=== PATIENT | female | born 1970 ===

== ENCOUNTER 2022-02-16 21:16 | Emergency (ER) | payer OTHER, SELFPAY ==
[2022-02-16 21:22] VITALS: BP 152/98; PULSE 94; RESP 17; TEMP 36.3; O2SAT 98
--- NOTE | 2022-02-16 21:44 | ED.GENADULT ---
HPI - General Adult General Chief complaint: Extremity Problem,Nontraumatic Stated complaint: RLE pain Time Seen by Provider: 02/16/22 21:34 History of Present Illness HPI narrative: 51-year-old female presents emergency room secondary pain down her right leg. She has been going on for several months. She is already been seen by a specialist. She has had some cortisone injections. Been taking [id number] pain medication not getting relief. She can go radiculopathy down the right leg. They someone has mentioned to her that she might need to have surgery for this. She is not actually seeing a back surgeon at this point. Denies any bowel or bladder issues. Whenever she tries to stand the pain gets even more intense. Related Data Allergies Allergy/AdvReac Type Severity Reaction Status Date / Time No Known Allergies Allergy Mild Verified 02/16/22 21:24 Review of Systems Review of Systems: CONSTITUTIONAL: Denies fever, chills, or sweats. EYES: Denies visual changes, redness, or discharge. ENT: Denies rhinorrhea, congestion, sore throat, or otalgia. CARDIOVASCULAR: Denies chest pain, palpitations, or edema. RESPIRATORY: Denies cough or dyspnea. GASTROINTESTINAL: Denies abdominal pain, nausea, vomiting, or diarrhea. GENITOURINARY: Denies dysuria or hematuria. SKIN: Denies rash or itching. MUSCULOSKELETAL: Some pain in the right lower back radiating all the way down the right leg on the lateral and posterior aspect. NEUROLOGIC: Denies headache, numbness, or weakness. PSYCHIATRIC: Denies anxiety or depression. PMFSH Surgical History Surgical History No pertinent past surgical history Social History Social History Living arrangements: with family Exam Narrative: APPEARANCE: Well appearing, no pain or distress, well-nourished. Head normocephalic and atraumatic. EYES: PERRLA/EOMI, conjunctivae very clear. NOSE: Normal with no drainage EARS:TMS clear Girish Kirby, with good light reflex. THROAT: Pharynx clear, no exudate. NECK: Supple. No adenopathy, no masses. RESPIRATORY: Airway patent, respirations nonlabored. Clear to auscultation bilaterally, no rales, rhonchi, wheezing. CARDIOVASCULAR: Regular rate and rhythm without murmurs, rubs, or gallops. ABDOMINAL: Soft, nontender, nondistended, no hepatosplenomegaly Musculoskeletal: Moves all extremities. Strength/ROM intact, No edema, No calf tenderness. Mild tenderness to palpation of the right lower lumbar region. Positive straight leg raising on the right. NEURO: Alert. Cranial nerves II through XII intact. Normal gait. Good coordination. Nonfocal examination. SKIN:: Warm, dry. Normal Color PSYCHIATRIC: Normal affect/mood, normal interaction Course Vital Signs Vital signs: Vital Signs Temperature 97.4 F L 02/16/22 21: Pulse Rate 94 02/16/22 21: Respiratory Rate 17 02/16/22 21: Blood Pressure 152/98 H 02/16/22 21: Pulse Oximetry 98 02/16/22 21:22 Oxygen Delivery Room Air 02/16/22 21:22 Temperature 97.4 F L 02/16/22 21: Pulse Rate 94 02/16/22 21: Respiratory Rate 17 02/16/22 21:22 Blood Pressure 152/98 H 02/16/22 21:22 Pulse Oximetry 98 02/16/22 21:22 Oxygen Delivery Room Air 02/16/22 21:22 Medical Decision Making MDM Narrative Medical decision making narrative: Patient has a right lumbar radiculopathy consistent with a bulging herniated disc. She had an MRI performed. She really needs to get into see someone who could possibly do a surgical intervention return if she needs 1. We will continue on some nonsteroidal anti-inflammatory pain medication. Also give her a few [place]'s told to be very cautious with these and generally try to take once before she goes to bed at night so she can get some sleep. Vital Signs Vital Signs: Vital Signs Temperature 97.4 F L 02/16/22 21: Pulse Rate 94 02/16/22
[2022-02-16] MEDS: HYDROcodone/acetaminophen (*CRX) 5-325 MG TABLET 1 TAB PO (21:50)
[2022-02-16] MEDS: KETOROLAC (*BKC) 60 MG/2 ML VIAL IM (21:50)
[2022-02-16] MEDS: predniSONE 20 MG TABLET 40 MG PO (21:50)
== END 2022-02-16 22:21 | disposition home or self-care (01) ==
PROVIDERS: Emergency Provider Emergency Medicine
DX: M54.16 Radiculopathy, lumbar region (principal)
CPT/HCPCS: 96372; 99283; A9270; J1885; J7512

== ENCOUNTER 2024-01-22 12:21 | Emergency (ER) | payer OTHER, SELFPAY ==
[2024-01-22 12:41] VITALS: BP 141/88; PULSE 87; RESP 18; TEMP 37.1; O2SAT 100
--- NOTE | 2024-01-22 12:57 | PC.NURSE ---
Pt's orthostatic BP measurements at these times were the followin (supine) - BP 131/92 and HR 76 1259 (sitting) - BP 137/93 and HR 77 1301 (standing) - BP 134/98 and HR 98 No complaints of dizziness throughout orthostatic measurements
--- NOTE | 2024-01-22 13:16 | PC.NURSE ---
Pt told gate technician during orthostatic blood pressures that she took a double dose of amlodipine yesterday and today.
--- NOTE | 2024-01-22 13:24 | ECG_ITS ---
SEE SCANNED COPY FOR CONFIRMED REPORT MTDD
[2024-01-22 14:05] LABS: Basophils Percent Auto 0.4 % (0.2-1.2); Eosinophils Absolute Auto 0.3 K/mm3 (0-0.3); Eosinophils Percent Auto 3.1 % (0-4.4); Hematocrit 43.9 % (37.0-47.0); Hemoglobin 14.3 g/dL (12.0-15.0); Immature Granulocyte Absolute 0.02 K/mm3 (0.00-0.031); Immature Granulocyte Percent A 0.2 % (0-0.5); Lymphocytes Absolute Auto 3.21 K/mm3 (0.9-3.2); Lymphocytes Percent Auto 39.5 % (18.3-44.2); Mean Corpuscular HGB Conc 32.6 g/dl (32-36); Mean Corpuscular Hemoglobin 30.2 pg (26-34); Mean Corpuscular Volume 92.6 fl (80-100); Mean Platelet Volume 12.1 fl (7.4-10.4); Monocytes Absolute Auto 0.3 K/mm3 (0.1-0.6); Monocytes Percent Auto 4.2 % (2.6-8.5); Neutrophils Absolute Auto 4.3 K/mm3 (1.3-6.7); Neutrophils Percent Auto 52.6 % (45.5-73.1); Platelet Count Result 220 k/mm3 (150-375); Red Blood Count 4.74 M/mm3 (4.2-5.4); White Blood Count 8.1 K/mm3 (4.5-10.0)
[2024-01-22 14:12] LABS: INR 0.9; Partial Thromboplastin Time 29.1 Seconds (22.3-36.8); Prothrombin Time 12.7 Seconds (11.1-14.7)
[2024-01-22 14:13] LABS: Alanine Aminotransferase 17 U/L (6-35); Albumin Level 4.6 g/dL (3.5-5.1); Alkaline Phosphatase 74 U/L (38-126); Anion Gap 7 mmol/L (4-12); Aspartate Amino Transferase 28 U/L (14-36); Blood Urea Nitrogen 10 mg/dL (7-17); Carbon Dioxide 25 mmol/L (22-30); Chloride 109 mmol/L (98-107); Estimated CRCL calculation 104 ml/min; Estimated Glomerular Filt Rate > 60; Glucose 99 mg/dL (65-110); Lipase 36 U/L (23-300); Potassium 3.6 mmol/L (3.4-5.0); Sodium 141 mmol/L (137-145)
[2024-01-22 14:24] LABS: Troponin I < 0.012 ng/mL (0.000-0.034)
[2024-01-22 14:34] VITALS: BP 133/64; PULSE 69; RESP 15; O2SAT 100
--- NOTE | 2024-01-22 15:18 | ED.DIZZY ---
HPI - Dizziness General Chief Complaint: Dizziness Stated Complaint: Dizzy and lightheaded Time Seen by Provider: 01/22/24 13:10 Source: patient Mode of arrival: ambulatory Limitations: no limitations History of Present Illness HPI Narrative: 53-year-old with a history of hypertension here with the complaints of dizziness since yesterday. Patient states that while she was at work well lightheaded for few minutes and again happened this morning. She denies any headache, chest pain or abdominal pain. She denies any blood in the stool upon arrival to the ER she states she is feeling better. Patient states that she is usually takes Norvasc 5 mg daily however she took 2 tablets yesterday. MD elicited complaint: dizziness and lightheadedness Severity: moderate Description: lightheadedness Context: change in medication Exacerbating factors: nothing Relieving factors: nothing Associated symptoms: denies other symptoms Related Data Allergies Allergy/AdvReac Type Severity Reaction Status Date / Time No Known Allergies Allergy Mild Verified 02/16/22 21:24 Review of Systems Review of Systems: All systems reviewed & are unremarkable except as noted in HPI and below Constitutional: Constitutional: Reports no additional constitutional complaints Eyes: Eyes: Reports no additional eye complaints ENT: Reports system reviewed and no additional complaints, except as documented Cardiovascular: Cardiovascular: Reports no additional cardiovascular complaints Respiratory: Respiratory: Reports no additional respiratory complaints Musculoskeletal: Musculoskeletal: Reports no additional musculoskeletal complaints Neurologic: Reports system reviewed and no additional complaints, except as documented PMFSH Surgical History Surgical History No pertinent past surgical history Social History Social History Living arrangements: with family Exam Narrative: GENERAL: Well-appearing, well-nourished, and in no acute distress. HEAD: Normocephalic, atraumatic. EYES: PERRLA and EOMI. ENT: Nares clear, no rhinorrhea or epistaxis. Mucous membranes moist. NECK: Supple. CHEST: Clear to auscultation. No respiratory distress. HEART: Regular rate and rhythm. No murmur heard. Normal peripheral pulses. ABDOMEN: Soft, nontender, nondistended, normal active bowel sounds. EXTREMITIES: Normal range of motion. No edema. SKIN: Warm, dry, no rash. NEURO: No focal deficits. Alert and oriented x3. PSYCH: Normal mood and affect. Course Course Emergency Course: Discussed all the lab work and EKG findings with the patient. She states she is feeling much better. Advised to take Norvasc 5 mg rather than 2 tablets., follow-up with her primary doctor. She does feel comfortable going home. Vital Signs Vital signs: Vital Signs Temperature 37.1 C 01/22/24 12:41 Pulse Rate 87 01/22/24 12:41 Respiratory Rate 18 01/22/24 12:41 Blood Pressure 141/88 H 01/22/24 12:41 Pulse Oximetry 100 01/22/24 12:41 Temperature 37.1 C 01/22/24 12:41 Pulse Rate 69 01/22/24 14:34 Respiratory Rate 15 01/22/24 14:34 Blood Pressure 133/64 01/22/24 14:34 Pulse Oximetry 100 01/22/24 14:34 MDM - Dizziness Lab Data 01/22/24 13:55 01/22/24 13:55 Labs: Lab Results 01/22/24 Range/Units 13:55 WBC 8.1 (4.5-10.0) K/mm3 RBC 4.74 (4.2-5.4) M/mm3 Hgb 14.3 (12.0-15.0) g/dL Hct 43.9 (37.0-47.0) % MCV 92.6 (80-100) fl MCH 30.2 (26-34) pg MCHC 32.6 (32-36) g/dl RDW 14.0 (11.5-14.5) % Plt Count 220 (150-375) k/mm3 MPV 12.1 H (7.4-10.4) fl Immature Gran % (Auto) 0.2 (0-0.5) % Neut % (Auto) 52.6 (45.5-73.1) % Lymph % (Auto) 39.5 (18.3-44.2) % [place] % (Auto) 4.2 (2.6-8.5) % Eos % (Auto) 3.1 (0-4.4) % Baso % (Auto) 0.4 (0.2-1.2) % Lymph # (Auto) 3.21 H (0.
[2024-01-22 16:25] VITALS: BP 145/86; PULSE 82; RESP 18; O2SAT 98
== END 2024-01-22 16:25 | disposition home or self-care (01) ==
PROVIDERS: Emergency Provider Family Medicine; PCP Physician Assistant
DX: R42 Dizziness and giddiness (principal); R94.31 Abnormal electrocardiogram [ECG] [EKG]
CPT/HCPCS: 36415; 80053; 83690; 84484; 85025; 85610; 85730; 93005; 99284

== ENCOUNTER 2025-06-03 15:10 | Emergency (ER) | payer OTHER, SELFPAY ==
[2025-06-03] VITALS (12 sets, daily range): BP systolic 118–154; BP diastolic 73–89; PULSE 54–81; RESP 13–19; TEMP 36.6; O2SAT 99–100
--- NOTE | ~2025-06-03 | CT_ITS ---
EXAMINATION: CTA brain carotid, 06/03/2025 17:05 CDT HISTORY: PEREZ, L facial paresthesia COMPARISON: No comparisons available. TECHNIQUE: CTA scan with 3D Reconstructions of the brain and neck was performed with contrast Isovue 300, 92cc injected IV. One or more of the following dose reduction techniques were used: automated exposure control, adjustment of the mA and/or kV according to patient size, use of iterative reconstruction technique. Unless otherwise stated, incidental findings do not require dedicated follow up imaging FINDINGS: CTA brain: Visualized brain parenchyma and orbits appear unremarkable. Basilar artery unremarkable. Right posterior cerebral artery unremarkable. The right posterior cerebral artery is fed predominantly by [place]. Left posterior cerebral artery unremarkable. The left posterior cerebral artery is fed predominantly by the [place] Right petrous and cavernous ICA segments unremarkable. Right M1, M2 segments and their branches unremarkable. Right A1 and A2 segments unremarkable Left petrous and cavernous ICA segments unremarkable. Left M1, M2 segments and their branches unremarkable. Left A1 and A2 segments unremarkable. CTA NECK: No sclerotic or lytic lesions. No significant sinusitis. The visualized parotid and submandibular glands are unremarkable. Soft tissues are unremarkable. Bilateral thyroid nodules the largest right lobe 1.5 x 1 cm, outpatient ultrasound recommended. The lung apices appear unremarkable. The cervical segments of the vertebral arteries are unremarkable. Right CCA unremarkable. Right ICA unremarkable Left CCA unremarkable. Left ICA unremarkable IMPRESSION: 1. No critical stenosis, occlusion or aneurysm identified. Reviewed, dictated and finalized at location P.
--- NOTE | ~2025-06-03 | XR_ITS ---
EXAMINATION: XR chest 1V, 06/03/2025 15:36 CDT HISTORY: cva w/u COMPARISON: No comparisons available. Technique: Single view. Findings: The lungs are clear, no effusion. No pneumothorax. Heart is normal size. Mediastinal and hilar contours are within normal limits. Bony thorax no acute abnormality. Impression: No acute cardiopulmonary abnormality. Reviewed, dictated and finalized at location P. Impression: No acute cardiopulmonary abnormality.
--- NOTE | ~2025-06-03 | CT_ITS ---
EXAMINATION: CT brain wo rigo, 06/03/2025 15:30 CDT HISTORY: posterior PEREZ, L facial tingling x3d COMPARISON: No comparisons available. Technique: Axial images obtained of the brain without contrast. One or more of the following dose reduction techniques were used: automated exposure control, adjustment of the mA and/or kV according to patient size, use of iterative reconstruction technique. Findings: No acute infarct or parenchymal hemorrhage. No abnormal mass or mass effect. No midline shift. No extra-axial fluid collections. No hydrocephalus. Mastoid air cells unremarkable. Sinuses and orbits unremarkable. No acute fracture. No significant facial or scalp soft tissue swelling evident. No radiopaque foreign body is seen. Impression: 1.No acute intracranial abnormality. Reviewed, dictated and finalized at location P. Impression: 1.No acute intracranial abnormality.
--- NOTE | 2025-06-03 15:29 | ECG_ITS ---
Test Date: 2025-06-03 17:42:09 Measurements Intervals [place] Rate: 52 P: 30 KS: 192 QRS: 15 QRSD: 95 T: 30 QT: 453 QTc: 422 Interpretive Statements SINUS BRADYCARDIA BORDERLINE ECG No previous ECG available for comparison Electronically Signed On 06-04-2025 08:35:25 CDT by Bayron Silveira D.O.
[2025-06-03 16:01] LABS: Hematocrit 41.0 % (37.0-47.0); Hemoglobin 13.3 g/dL (12.0-15.0); Immature Granulocyte Percent A 0.2 % (0-0.5); Lymphocytes Absolute Auto 3.11 K/mm3 (0.9-3.2); Mean Corpuscular HGB Conc 32.4 g/dl (32-36); Mean Corpuscular Hemoglobin 29.9 pg (26-34); Mean Corpuscular Volume 92.1 fl (80-100); Nucleated Red Blood Cells Absolute Auto 0.000 K/mm3 (0.0-0.012); Nucleated Red Blood Cells Perc 0.0 % (0.0-0.2); Platelet Count Result 186 k/mm3 (150-375); Red Blood Count 4.45 M/mm3 (4.2-5.4); White Blood Count 8.3 K/mm3 (4.5-10.0)
[2025-06-03] MEDS: ACETAMINOPHEN 500 MG TABLET 1000 MG PO (16:03)
[2025-06-03] MEDS: METOCLOPRAMIDE HCL INJ 10 MG/2 ML VIAL IV PUSH (16:04)
[2025-06-03] MEDS: SODIUM CHLORIDE 0.9% IV 1,000 ML 999 ML IV CONT (16:05)
--- OUTSIDE RECORDS SUMMARY | 2025-06-03 16:05 | XMS_ITS | Clinical Summary ---
Author Organization [facility] Address [address] [place] [address] Care Team Providers Care Store Stock Help Name Role Phone Unavailable Primary Care Provider Unavailabl e Source Comments [facility],non-owned Affiliates and Associated Physician Practices is amultiple site organization consisting of ambulatory clinics and hospital sitesin [place], [place], [place] and [place]. This disclosure is being madepursuant to the Care Everywhere program and may not contain all information available regarding this patient. Last updated 18.[facility] Allergies No known active allergies Medications * Be aware that medications may not be up to date on this document. Alwaysverify current medications with the patient. ASPIRIN PO Active levonorgestrel (MIRENA) 20 MCG/24HR IUD 1 device by Intrauterine route as directed Active Social History Tobacco Use Types Packs/Day Years Used Date Smoking Tobacco: Never Smokeless Tobacco: Never Tobacco Cessation:Counseling Given: Yes Comments No Sex and Gender Information Value Date Recorded Sex Assigned at Not on file Legal Sex Female 5:23 PM CDT Gender Identity Not on file Sexual Orientation Not on file Last Filed Vital Signs Vital Sign Reading Time Taken Comments Blood Pressure 135/88 05/26/2018 6:08 PM CDT Pulse 118 05/26/2018 6:08 PM CDT Temperature 38.7 C (101.7 F) 05/26/2018 6:08 PM CDT Respiratory Rate 18 05/26/2018 6:08 PM CDT Oxygen Saturation 97% 05/26/2018 6:08 PM CDT Inhaled Oxygen Concentration - - Weight 99.8 kg (220 lb) 05/26/2018 6:08 PM CDT Height 162.6 cm (5' 4) 05/26/2018 6:08 PM CDT Body Mass Index 37.76 05/26/2018 6:08 PM CDT Plan of Treatment Health Maintenance Due Date Last Done Comments COLOGUARD (AGES 45-75) - COL ON CA SCREENING 1968 COLON MONITORING 1968 COLONOSCOPY - COLON CA SCREENING 1968 CT COLONOGRAPHY - COLON CA SCREENING 1968 Colorectal Cancer Screening 1968 FIT - COLON CA SCREENING 1968 FLEX SIG - COLON CA SCREENING 1968 LIPID TESTING 1968 MAMMOGRAM 1968 HIV SCREENING 1983 HEPATITIS C SCREENING 05/21/1986 DTAP/TDAP/TD VACCINES (1 - Tdap) 1987 HEPATITIS B VACCINE (1 of 3 - 19+ 3-dose series) 1987 PNEUMOCOCCAL VACCINE 50+ (1 of 1 - PCV) 2018 ZOSTER VACCINE (1 of 2) 2018 SCREENING FOR DIABETES 05/26/2018 DEPRESSION SCREENING 08/31/2024 COVID-19 VACCINE (1 - 2023-2 5 season) 2025 INFLUENZA VACCINE (#1) 2025 HIB VACCINE Aged Out No longer eligi ble based on patient's age to complete this topic HPV VACCINE Aged Out No longer eligi ble based on patient's age to complete this topic MENINGOCOCCAL (Group B) VACC INE SHARED DECISION-MAKING Aged Out No longer eligibl e based on patient's age to complete this topic MENINGOCOCCAL GROUPS A/C/Y/W VACCINE Aged Out No longer eligible b ased on patient's age to complete this topic Insurance [facility]
--- OUTSIDE RECORDS SUMMARY | 2025-06-03 16:05 | XMS_ITS | Clinical Summary ---
Author Organization [facility] Care Team Providers Care Supervisor Metal Furniture Assembly Name Role Phone Unavailable Primary Care Provider Unavailabl e Social History Tobacco Use Types Packs/Day Years Used Date Smoking Tobacco: Never Assessed Comments Unknown Sex and Gender Information Value Date Recorded Sex Assigned at Not on file Legal Sex Female 10:32 AM CDT Gender Identity Not on file Sexual Orientation Not on file Plan of Treatment Health Maintenance Due Date Last Done Comments Hepatitis C Virus (HCV) Screening 1968 Hepatitis B Immunization (1 of 3 - 19+ 3-dose series) 1987 Pap Smear 1989 Cervical Cancer Screening (CCS) 1998 HPV/Cotest 1998 Cologuard 2013 Colonoscopy 2013 Colorectal Cancer Screening 2013 Immunochemical Fecal Occult Blood 2013 Pneumococcal Immunization (5 0+ years) (1 of 1 - PCV) 2018 Zoster Immunization (1 of 2) 2018 Influenza Immunization (#1) 2025 06/14/2013 SARS-COV-2 Immunization ( - season) 2025 Respiratory Syncytial Virus (RSV) Immunization (Adult) (1 - 1-dose 75+ series) 2043 DTaP/Tdap/Td Immunization Discontinued 08/31/2012 TdaP Immunization Completed 08/31/2012 Human Papillomavirus (HPV) Immunization Aged Out No longer eligible b ased on patient's age to complete this topic Meningococcal Immunization (ACWY) Aged Out No longer eligible based on patient's age to complete this topic Rotavirus Immunization Aged Out No lo nger eligible based on patient's age to complete this topic
--- OUTSIDE RECORDS SUMMARY | 2025-06-03 16:05 | XMS_ITS | Clinical Summary ---
Author Organization [facility] Address [address] [place] [address] Phone Care Team Providers Care Vat Operator Name Role Phone Unavailable Primary Care Provider Unavailabl e Allergies No known active allergies Medications naproxen (NAPROSYN) 500 mg tablet Take 1 Tablet (500 mg) by mouth 2 times daily with meals for five days, then decrease to only as needed after that 20 Tablet 01/05/2025 2:09 PM CDT 01/05/2025 Active cyclobenzaprine (FLEXERIL) 10 mg tablet Take 1 Tablet (10 mg) by mouth 3 times daily as needed for Spasm. 10 Tablet 01/05/2025 2:09 PM CDT 01/05/2025 Active Encounters Date Type Department Care Team Description 05/16/2025 External Device Data [facility] Provider, Abstract 05/09/2025 External Device Data [facility] Provider, Abstract 05/09/2025 External Device Data [facility] Provider, Abstract 05/02/2025 External Device Data [facility] Provider, Abstract 04/19/2025 External Device Data [facility] Provider, Abstract 04/05/2025 External Device Data [facility] Provider, Abstract 04/04/2025 External Device Data [facility] Provider, Abstract 04/04/2025 External Device Data [facility] Provider, Abstract 03/15/2025 External Device Data [facility] Provider, Abstract 03/15/2025 External Device Data [facility] Provider, Abstract from Last 3 Months Social History Tobacco Use Types Packs/Day Years Used Date Smoking Tobacco: Every Day Cigarettes Tobacco Cessation:Ready to Q uit: Not Asked; Counseling Given: Not Answered Alcohol Use Standard Drinks/Week Comments Not Currently 0 (1 standard drink = 0.6 oz pur e alcohol) Feeling Safe Answer Date Recorded Are you in a relationship wi th someone who hurts you emotionally and/or physically? No 01/05/2025 Comments No Sex and Gender Information Value Date Recorded Sex Assigned at Not on file Legal Sex Female 8:54 AM CDT Gender Identity Not on file Sexual Orientation Not on file Last Filed Vital Signs Vital Sign Reading Time Taken Comments Blood Pressure 155/99 01/05/2025 12:30 PM CDT Pulse 59 01/05/2025 12:30 PM CDT Temperature 36.2 C (97.2 F) 01/05/2025 9:00 AM CDT Respiratory Rate 20 01/05/2025 12:30 PM CDT Oxygen Saturation 95% 01/05/2025 12:30 PM CDT Inhaled Oxygen Concentration - - Weight 99.8 kg (220 lb) 01/05/2025 9:00 AM CDT Height 162.6 cm (5' 4) 01/05/2025 9:00 AM CDT Body Mass Index 37.76 01/05/2025 9:00 AM CDT Plan of Treatment Health Maintenance Due Date Last Done Comments Pre-Diabetes and Diabetes Screening 1968 HEPATITIS B VACCINES (1 of 3 - 19+ 3-dose series) 1987 HPV/Cotest (21-29) 1989 CERVICAL CANCER SCREENING 1998 HPV/Cotest (30-65) 1998 PAP SMEAR 1998 BREAST CANCER SCREENING 2008 COLORECTAL SCREENING 2013 Colorectal Cancer Screening 2013 FIT-DNA Q 3 years 2013 FIT/FOBT Q 1 year 2013 Flex Sig/CT Colonography Q 5 years 2013 ZOSTER VACCINE (1 of 2) 2018 INFLUENZA VACCINE (#1) 2025 06/14/2013 DTAP/TDAP/TD VACCINES (3 - Td or Tdap) 11/04/2033, 08/31/2012 Insurance [employer]
--- NOTE | 2025-06-03 16:10 | ED_ITS ---
HPI - Neuro Symptoms/Deficit General Chief Complaint: Neuro Symptoms/Deficit Stated Complaint: headache, numbness to left side of face x3 days Time Seen by Provider: 06/03/25 15:18 Source: patient Mode of arrival: ambulatory Limitations: no limitations History of Present Illness HPI Narrative: Patient is a 55-year-old female who presents the ED with report of headache, left-sided facial tingling. Patient reports symptoms began 3 days ago. Pain present in her posterior head. Reports tingling to left-sided face. Denies numbness. She states she has a history of headaches/migraines, but states this does feel similar. Has been taking Tylenol and BC Powder at home without significant improvement. Also reports intermittent lightheadedness. Denies paresthesias of arms or legs, slurred speech, confusion, vision changes, difficulty walking, fevers. Related Data Allergies Allergy/AdvReac Type Severity Reaction Status Date / Time No Known Allergies Allergy Mild Verified 06/03/25 15:18 Review of Systems 2 Review of Systems: All systems reviewed & are unremarkable except as noted in HPI. All systems reviewed & are unremarkable except as noted in HPI and below [facility] Surgical History Surgical History No pertinent past surgical history Social History Social History Living arrangements: with family Exam 2 Narrative: GENERAL: Well appearing, morbidly obese with BMI of 40.6, non-toxic, in no acute distress. HEAD: Normocephalic, atraumatic. EYES: PERRL/EOMI, conjunctivae clear bilaterally. No nystagmus. NECK: Supple. No meningeal signs. RESPIRATORY: Airway patent, respirations nonlabored. Clear to auscultation bilaterally, no rales, rhonchi, wheezing. CARDIOVASCULAR: Regular rate and rhythm without murmurs, rubs, or gallops. Peripheral pulses 2+ and equal bilaterally. MUSCULOSKELETAL: Moves all extremities. No gross deformities. SKIN: Warm, dry, normal color. No rashes. NEURO: A&O X3. Speech clear. Follows commands. CN II-XII intact. Subjective very mild decreased sensation to L facial cheek/mandibular region, intact in L forehead. Otherwise sensation intact throughout extremities. Steady gait. No ataxic movements. Strength 5/5 in upper and lower extremities bilaterally. No pronator drift. Equal drill sergeant strength bilaterally. PSYCHIATRIC: Appropriate mood and affect. Normal interaction. Course Vital Signs Vital signs: Vital Signs Temperature 97.8 F 06/03/25 15:12 Pulse Rate 81 06/03/25 15:12 Respiratory Rate 15 06/03/25 15:12 Blood Pressure 132/73 06/03/25 15:12 Pulse Oximetry 100 06/03/25 15:12 Oxygen Delivery Room Air 06/03/25 15:12 Temperature 97.8 F 06/03/25 15:12 Pulse Rate 64 06/03/25 19:00 Respiratory Rate 19 06/03/25 19:00 Blood Pressure 140/86 06/03/25 19:00 Pulse Oximetry 100 06/03/25 19:00 Oxygen Delivery Room Air 06/03/25 15:12 MDM - Neuro Symptoms/Deficit MDM Narrative Medical decision making narrative: Patient presented to ED with 3 day history of left posterior headache, left- sided facial paresthesias. Vital signs are stable upon arrival. Patient denying any other neurologic symptoms. Does have subjective decreased sensation to L facial cheek- giving NIH 1, otherwise is neurologically intact. Symptoms have been ongoing for the past 3 days. She is not a candidate for any thrombolytic therapy given this and low NIH CT brain negative CTA of brain and carotids also unremarkable EKG with sinus rhythm, no concerning ST changes Laboratory studies unremarkable. Stable electrolytes. Stable kidney function. Troponin undetectable. Chest x-ray clear. Patient given migraine cocktail. On re-evaluation, she is feeling improved. Headache is improved. Paresthesias to face have resolved. She otherwise remains neurologically intact. I have low suspicion for CVA at this time. Discussed overall reassuring workup with patient. Discussed high likelihood of complex migraine picture. Given that symptoms/paresthesias have been ongoing for 3 days, I would expect to find subacute changes on CT imaging today, however I did discuss the patient that I cannot completely rule out central neurologic cause of symptoms, such as CVA, without performing MRI. Discussed that we do not currently have neurology coverage at our hospital this weekend, but that we could discuss with an outside hospital for transfer/further neurologic treatment despite my suspicion for this being lower. Utilized shared decision making with patient. She would prefer to go home. She does not wish to be transferred and feels comfortable going home at this time. She would prefer to follow-up with her primary care doctor and have outpatient MRI performed if needed. States she will contact her primary care doctor on Thursday to make follow-up appointment. I do feel this is appropriate. Feel patient is safe for discharge home. Discussed continued headache management, very strict return precautions, including signs or symptoms of CVA. Patient voiced understanding. Family in agreement. Discharged in stable condition. Medical Records Attestation: I reviewed the patient's medical records. Lab Data Attestation: I reviewed the patient's lab results. 06/03/25 15:55 06/03/25 15:56 Labs: Lab Results 06/03/25 06/03/25 Range/Units 15:55 15:56 WBC 8.3 (4.5-10.0) K/mm3 RBC 4.45 (4.2-5.4) M/mm3 Hgb 13.3 (12.0-15.0) g/dL Hct 41.0 (37.0-47.0) % MCV 92.1 (80-100) fl MCH 29.9 (26-34) pg MCHC 32.4 (32-36) g/dl RDW 14.1 (11.5-14.5) % Plt Count 186 (150-375) k/mm3 MPV 11.5 H (7.4-10.4) fl Immature Gran % (Auto) 0.2 (0-0.5) % Neut % (Auto) 53.5 (45.5-73.1) % Lymph % (Auto) 37.5 (18.3-44.2) % [place] % (Auto) 4.2 (2.6-8.5) % Eos % (Auto) 4.2 (0-4.4) % Baso % (Auto) 0.4 (0.2-1.2) % Lymph # (Auto) 3.11 (0.9-3.2) K/mm3 [place] # (Auto) 0.4 (0.1-0.6) K/mm3 Eos # (Auto) 0.4 H (0-0.3) K/mm3 Baso # (Auto) 0.0 (0.0-0.1) K/mm3 Abs Immat Gran (auto) 0.02 (0.00-0.031) K/mm3 Absolute Neuts (auto) 4.4 (1.3-6.7) K/mm3 Absolute Nucleated RBC 0.000 (0.0-0.012) K/mm3 Nucleated RBC % 0.0 (0.0-0.2) % PT 13.2 (11.1-14.7) Seconds INR 1.0 APTT 25.6 (22.3-36.8) Seconds Sodium 139 (137-145) mmol/L Potassium 3.9 (3.4-5.0) mmol/L Chloride 107 (98-107) mmol/L Carbon Dioxide 28 (22-30) mmol/L Anion Gap 4 (4-12) mmol/L BUN 9 (7-17) mg/dL Creatinine 0.61 L (0.7-1.0) mg/dL Estim Creat Clear Calc 104 ml/min Estimated GFR > 60 (59 - ) Glucose 111 H (65-110) mg/dL Calcium 9.9 (8.4-10.2) mg/dL Total Bilirubin 0.6 (0.2-1.3) mg/dL AST 31 (14-36) U/L ALT 22 (6-35) U/L Alkaline Phosphatase 70 (38-126) U/L Troponin I < 0.012 (0.000-0.034) ng/mL Total Protein 7.5 (6.3-8.2) g/dL Albumin 4.0 (3.5-5.1) g/dL Imaging Data Attestation: I personally reviewed and interpreted this imaging study as follows: Radiologist's impression: ITS Impressions Head CT 06/03/25 15:44 Impression: 1.No acute intracranial abnormality. Chest X-Ray 06/03/25 15:47 Impression: No acute cardiopulmonary abnormality. Head/Neck CTA 06/03/25 17:45 IMPRESSION: 1. No critical stenosis, occlusion or aneurysm identified. ECG Data EKG #1: Attestation: I personally reviewed and interpreted this ECG as follows: ECG completion date: 06/03/25 ECG completion time: 17:42 EKG Interpretation: bradycardia (52), sinus rhythm and no ST changes Discharge Plan Discharge Clinical Impression: Facial paresthesia Headache Qualifiers: Headache type: unspecified Headache chronicity pattern: acute headache I ntractability: not intractable Qualified Code(s): R51.9 - Headache, unspecified Patient Disposition: Home Condition: Stable Instructions: Antibiotic Form, Acute Headache (ED), Paresthesia (ED) Additional Instructions: Your work up here was reassuring. Continue Tylenol and ibuprofen as needed for pain. Get plenty of rest. Stay well hydrated. Recommend low light/ low stimulus environment, limiting screen time. Follow-up closely with your primary care doctor for further evaluation. Call office Thursday to make an appointment. Also recommend follow up with Neurology. Return to the ED if you experience worsening or severe pain, severe dizziness, vision changes, passing out, unable to keep down food or drink, numbness or weakness of arm or leg, worsening or recurrent numbness of face, slurred speech, confusion, difficulty walking, or any other symptoms of concern. Patient Language: Maldivian Prescriptions: No Action hydrocodone-acetaminophen 5-300 mg tablet 1 tablet PO BID PRN (Reason: pain) Qty: 20 0RF naproxen 500 mg tablet 500 mg PO BID PRN (Reason: pain) Qty: 20 0RF prednisone 20 mg tablet 20 mg PO BID Qty: 10 0RF Follow-up/Referrals: Giuseppe Streeter MD [Physician, Neurology] Referral Note: NEUROLOGY PHYSICIAN,ORGANIZATIONAL EFFECTIVENESS CONSULTANT [Primary Care Provider, Internal Medicine] Time of Disposition: 19:33 Quality Stroke Scale Stroke Scale 1: Stroke scale date:: 06/03/25 Stroke scale time:: 15:20 1a Level of consciousness: alert-0 1b Level of consciousness questions: answers both correctly-0 1c Level of consciousness commands: obeys both correctly-0 2 Best gaze: normal-0 3 Visual: no visual loss-0 4 Facial palsy: normal-0 5a Motor: left arm: no drift-0 5b Motor: right arm: no drift-0 6a Motor: left leg: no drift-0 6b Motor: right leg: no drift-0 7 Limb ataxia: absent-0 8 Sensory: pinprick less sharp-1 9 Best language: no aphasia-0 10 Dysarthria: normal-0 11 Extinction and inattention: no abnormality-0 Level:: 1
[2025-06-03 16:13] LABS: INR 1.0; Prothrombin Time 13.2 Seconds (11.1-14.7)
[2025-06-03 16:14] LABS: Partial Thromboplastin Time 25.6 Seconds (22.3-36.8)
[2025-06-03 16:22] LABS: Alanine Aminotransferase 22 U/L (6-35); Albumin Level 4.0 g/dL (3.5-5.1); Alkaline Phosphatase 70 U/L (38-126); Anion Gap 4 mmol/L (4-12); Aspartate Amino Transferase 31 U/L (14-36); Bilirubin,Total 0.6 mg/dL (0.2-1.3); Blood Urea Nitrogen 9 mg/dL (7-17); Calcium 9.9 mg/dL (8.4-10.2); Carbon Dioxide 28 mmol/L (22-30); Chloride 107 mmol/L (98-107); Estimated CRCL calculation 104 ml/min; Estimated Glomerular Filt Rate > 60; Glucose 111 mg/dL (65-110); Potassium 3.9 mmol/L (3.4-5.0); Sodium 139 mmol/L (137-145); Total Protein 7.5 g/dL (6.3-8.2)
[2025-06-03 16:33] LABS: Troponin I < 0.012 ng/mL (0.000-0.034)
[2025-06-03] MEDS: dexAMETHasone SOD PHOS INJ 10 MG/ML 1 ML VIAL IV PUSH (18:04)
[2025-06-03] MEDS: KETOROLAC 30 MG/ML VIAL (*BKC) IV PUSH (18:04)
== END 2025-06-03 19:50 | disposition home or self-care (01) ==
PROVIDERS: Emergency Provider Physician Assistant
DX: R51.9 Headache, unspecified (principal); R20.2 Paresthesia of skin
CPT/HCPCS: 36415; 70450; 70496; 70498; 71045; 80053; 84484; 85025; 85610; 85730; 93005; 96361; 96374; 96375; 99284; A9270; J1100; J1200; J1885; J2765; J7030; Q9967